=== PATIENT | female | born 1985 | race Caucasian/White ===

== ENCOUNTER 2016-08-04 12:41 | Emergency (ER) | payer OTHER ==
[2016-08-04] MEDS ORDERED: FLOVENT HFA1 PUF1 INH (12:49)
[2016-08-04] MEDS ORDERED: VENTOLIN HFA18 G2 PO (12:49)
[2016-08-04] MEDS ORDERED: PROAIR HFA8.5 GM INH (15:13)
== END 2016-08-04 15:25 ==
LOC: EDMED 12:41
DX: J06.9 Acute upper respiratory infection, unspecified (principal); R07.89 Other chest pain; F17.210 Nicotine dependence, cigarettes, uncomplicated